=== PATIENT | female | born 1965 | race Caucasian/White ===

== ENCOUNTER 2020-08-02 08:27 | Outpatient (CLI) | payer OTHER | END 2020-08-02 08:28 | disposition home or self-care (01) | LOC: CSHWCC 08:27 | PROVIDERS: ATTEND Nurse Practitioner Family | DX: T81.89XD Other complications of procedures, not elsewhere classified, subsequent encounter (principal); T81.30XD Disruption of wound, unspecified, subsequent encounter; K45.1 Other specified abdominal hernia with gangrene; B18.2 Chronic viral hepatitis C; E11.8 Type 2 diabetes mellitus with unspecified complications; E66.3 Overweight; E78.2 Mixed hyperlipidemia; G47.33 Obstructive sleep apnea (adult) (pediatric); I10 Essential (primary) hypertension | CPT/HCPCS: 99203; G0463 ==

== ENCOUNTER 2020-08-08 09:04 | Outpatient (CLI) | payer OTHER | END 2020-08-08 09:05 | disposition home or self-care (01) | LOC: CSHWCC 09:04 | PROVIDERS: ATTEND Nurse Practitioner Family | DX: T81.89XD Other complications of procedures, not elsewhere classified, subsequent encounter (principal); T81.30XD Disruption of wound, unspecified, subsequent encounter; B18.2 Chronic viral hepatitis C; E11.8 Type 2 diabetes mellitus with unspecified complications; E66.3 Overweight; E78.2 Mixed hyperlipidemia; G47.33 Obstructive sleep apnea (adult) (pediatric); K45.1 Other specified abdominal hernia with gangrene; I10 Essential (primary) hypertension | CPT/HCPCS: 97605; 99213; G0463 ==

== ENCOUNTER 2020-08-10 09:13 | Outpatient (CLI) | payer OTHER | END 2020-08-10 09:14 | disposition home or self-care (01) | LOC: CSHWCC 09:13 | PROVIDERS: ATTEND Nurse Practitioner Family | DX: T81.89XD Other complications of procedures, not elsewhere classified, subsequent encounter (principal); B18.2 Chronic viral hepatitis C; E11.8 Type 2 diabetes mellitus with unspecified complications; E66.3 Overweight; E78.2 Mixed hyperlipidemia; G47.33 Obstructive sleep apnea (adult) (pediatric); K45.1 Other specified abdominal hernia with gangrene; T81.30XD Disruption of wound, unspecified, subsequent encounter | CPT/HCPCS: 97605; 99213; G0463 ==

== ENCOUNTER 2020-08-14 14:09 | Outpatient (CLI) | payer OTHER | END 2020-08-14 14:10 | disposition home or self-care (01) | LOC: CSHWCC 14:09 | PROVIDERS: ATTEND Nurse Practitioner Family | DX: T81.89XD Other complications of procedures, not elsewhere classified, subsequent encounter (principal); T81.30XD Disruption of wound, unspecified, subsequent encounter; E11.8 Type 2 diabetes mellitus with unspecified complications; E78.2 Mixed hyperlipidemia; K45.1 Other specified abdominal hernia with gangrene; B18.2 Chronic viral hepatitis C; G47.33 Obstructive sleep apnea (adult) (pediatric); I10 Essential (primary) hypertension; E66.3 Overweight | CPT/HCPCS: 97605; 99213; G0463 ==

== ENCOUNTER 2020-08-16 11:12 | Outpatient (CLI) | payer OTHER | END 2020-08-16 11:13 | disposition home or self-care (01) | LOC: CSHWCC 11:12 | PROVIDERS: ATTEND Nurse Practitioner Family | DX: T81.89XD Other complications of procedures, not elsewhere classified, subsequent encounter (principal); T81.30XD Disruption of wound, unspecified, subsequent encounter; B18.2 Chronic viral hepatitis C; E78.2 Mixed hyperlipidemia; G47.33 Obstructive sleep apnea (adult) (pediatric); K45.1 Other specified abdominal hernia with gangrene; E11.8 Type 2 diabetes mellitus with unspecified complications; E66.3 Overweight; I10 Essential (primary) hypertension | CPT/HCPCS: 97605 ==

== ENCOUNTER 2020-08-21 09:13 | Outpatient (CLI) | payer OTHER | END 2020-08-21 09:14 | disposition home or self-care (01) | LOC: CSHWCC 09:13 | PROVIDERS: ATTEND Nurse Practitioner Family | DX: T81.89XD Other complications of procedures, not elsewhere classified, subsequent encounter (principal); T81.30XD Disruption of wound, unspecified, subsequent encounter; B18.2 Chronic viral hepatitis C; E11.8 Type 2 diabetes mellitus with unspecified complications; E78.2 Mixed hyperlipidemia; G47.33 Obstructive sleep apnea (adult) (pediatric); K45.1 Other specified abdominal hernia with gangrene; I10 Essential (primary) hypertension; E66.3 Overweight | CPT/HCPCS: 99213; G0463 ==

== ENCOUNTER 2020-08-24 10:42 | Outpatient (CLI) | payer OTHER | END 2020-08-24 10:43 | disposition home or self-care (01) | LOC: CSHWCC 10:42 | PROVIDERS: ATTEND Nurse Practitioner Family | DX: T81.89XD Other complications of procedures, not elsewhere classified, subsequent encounter (principal); B18.2 Chronic viral hepatitis C; E11.8 Type 2 diabetes mellitus with unspecified complications; E66.3 Overweight; E78.2 Mixed hyperlipidemia; G47.33 Obstructive sleep apnea (adult) (pediatric); I10 Essential (primary) hypertension; K45.1 Other specified abdominal hernia with gangrene; T81.30XS Disruption of wound, unspecified, sequela | CPT/HCPCS: 10140; 87070; 87077; 87186; 87205; 97605; 99213; G0463 ==

== ENCOUNTER 2020-08-27 10:46 | Outpatient (CLI) | payer OTHER | END 2020-08-27 10:47 | disposition home or self-care (01) | LOC: CSHWCC 10:46 | PROVIDERS: ATTEND Nurse Practitioner Family | DX: T81.89XD Other complications of procedures, not elsewhere classified, subsequent encounter (principal); T81.30XS Disruption of wound, unspecified, sequela; B18.2 Chronic viral hepatitis C; E11.8 Type 2 diabetes mellitus with unspecified complications; E66.3 Overweight; E78.2 Mixed hyperlipidemia; G47.33 Obstructive sleep apnea (adult) (pediatric); I10 Essential (primary) hypertension; K45.1 Other specified abdominal hernia with gangrene | CPT/HCPCS: 97605; 99213; G0463 ==

== ENCOUNTER 2020-08-31 08:25 | Outpatient (CLI) | payer OTHER | END 2020-08-31 08:26 | disposition home or self-care (01) | LOC: CSHWCC 08:25 | PROVIDERS: ATTEND Nurse Practitioner Family | DX: T81.89XD Other complications of procedures, not elsewhere classified, subsequent encounter (principal); T81.30XD Disruption of wound, unspecified, subsequent encounter; K45.1 Other specified abdominal hernia with gangrene; B18.2 Chronic viral hepatitis C; E11.8 Type 2 diabetes mellitus with unspecified complications; E66.3 Overweight; E78.2 Mixed hyperlipidemia; G47.33 Obstructive sleep apnea (adult) (pediatric); I10 Essential (primary) hypertension | CPT/HCPCS: 97605; 99213; G0463 ==

== ENCOUNTER 2020-09-03 15:32 | Outpatient (CLI) | payer OTHER | END 2020-09-03 15:33 | disposition home or self-care (01) | LOC: CSHWCC 15:32 | PROVIDERS: ATTEND Nurse Practitioner Family | DX: T81.89XA Other complications of procedures, not elsewhere classified, initial encounter (principal); B18.2 Chronic viral hepatitis C; E11.8 Type 2 diabetes mellitus with unspecified complications; E66.3 Overweight; E78.2 Mixed hyperlipidemia; G47.33 Obstructive sleep apnea (adult) (pediatric); I10 Essential (primary) hypertension; K45.1 Other specified abdominal hernia with gangrene; T81.30XA Disruption of wound, unspecified, initial encounter | CPT/HCPCS: 97605 ==

== ENCOUNTER 2020-09-07 11:20 | Outpatient (CLI) | payer OTHER | END 2020-09-07 11:21 | disposition home or self-care (01) | LOC: CSHWCC 11:20 | PROVIDERS: ATTEND Nurse Practitioner Family | DX: T81.89XD Other complications of procedures, not elsewhere classified, subsequent encounter (principal); T81.30XD Disruption of wound, unspecified, subsequent encounter; E11.8 Type 2 diabetes mellitus with unspecified complications; B18.2 Chronic viral hepatitis C; E66.3 Overweight; G47.33 Obstructive sleep apnea (adult) (pediatric); I10 Essential (primary) hypertension; K45.1 Other specified abdominal hernia with gangrene; E78.2 Mixed hyperlipidemia ==

== ENCOUNTER 2020-09-10 11:05 | Outpatient (CLI) | payer OTHER | END 2020-09-10 11:06 | disposition home or self-care (01) | LOC: CSHWCC 11:05 | PROVIDERS: ATTEND Nurse Practitioner Family | DX: T81.89XD Other complications of procedures, not elsewhere classified, subsequent encounter (principal); T81.30XD Disruption of wound, unspecified, subsequent encounter; B18.2 Chronic viral hepatitis C; K45.1 Other specified abdominal hernia with gangrene; E11.8 Type 2 diabetes mellitus with unspecified complications; G47.33 Obstructive sleep apnea (adult) (pediatric); E78.2 Mixed hyperlipidemia; I10 Essential (primary) hypertension; E66.3 Overweight ==

== ENCOUNTER 2020-09-24 16:41 | Outpatient (CLI) | payer OTHER | END 2020-09-24 16:42 | disposition home or self-care (01) | LOC: CSHWCC 16:41 | PROVIDERS: ATTEND Nurse Practitioner Family | DX: T81.89XD Other complications of procedures, not elsewhere classified, subsequent encounter (principal); T81.30XD Disruption of wound, unspecified, subsequent encounter; B18.2 Chronic viral hepatitis C; E11.8 Type 2 diabetes mellitus with unspecified complications; E66.3 Overweight; E78.2 Mixed hyperlipidemia; G47.33 Obstructive sleep apnea (adult) (pediatric); K45.1 Other specified abdominal hernia with gangrene; I10 Essential (primary) hypertension | CPT/HCPCS: 99213; G0463 ==

== ENCOUNTER 2023-01-02 07:52 | Day surgery (SDC) | payer OTHER ==
[2022-12-31 15:31] VITALS: BMI 39.3
[2023-01-02] MEDS ORDERED: PROPOFOL 20 ML ONE (09:35)
[2023-01-02] MEDS ORDERED: Ketorolac Tromethamine 30 MG/ML VIAL ONE (09:35)
[2023-01-02] MEDS ORDERED: Ondansetron PF 4 MG/2 ML Vial ONE (09:35)
[2023-01-02] MEDS ORDERED: Dexamethasone 4 mg/ml Vial ONE (09:35)
[2023-01-02] MEDS ORDERED: Lidocaine 1% PF 5 ML VIAL ONE (09:35)
[2023-01-02] MEDS ORDERED: fentaNYL 50 mcg/mL 1 mL Vial ONE ×2 (09:35→09:36)
[2023-01-02] MEDS ORDERED: Promethazine HCl 25 MG/ML VIAL ONE (09:38)
[2023-01-02] MEDS ORDERED: CEFAZOLIN 2 GM VIAL ONE (09:43)
[2023-01-02] MEDS ORDERED: ePHEDrine Sulfate 50 MG/10 ML VIAL ONE (10:08)
[2023-01-02] MEDS ORDERED: Bupivacaine PF 0.5% 30 ML VIAL ONE (10:10)
[2023-01-02] MEDS ORDERED: PHENYLEPHRINE-NS 100 MCG/ML 10 ML SYRINGE ONE (10:16)
== END 2023-01-02 12:05 | disposition home or self-care (01) ==
LOC: CSHSDC 07:52
PROVIDERS: ATTEND Podiatrist Foot & Ankle Surgery
PROC: 0SGQ07Z Fusion of Left Toe Phalangeal Joint with Autologous Tissue Substitute, Open Approach (ICD-10-PCS; principal; 2023-01-02)
DX: M20.42 Other hammer toe(s) (acquired), left foot (principal); K57.30 Diverticulosis of large intestine without perforation or abscess without bleeding; E78.00 Pure hypercholesterolemia, unspecified; E11.65 Type 2 diabetes mellitus with hyperglycemia; E66.9 Obesity, unspecified; Z68.39 Body mass index [BMI] 39.0-39.9, adult; Z91.09 Other allergy status, other than to drugs and biological substances; Z71.6 Tobacco abuse counseling; Z98.890 Other specified postprocedural states; Z79.899 Other long term (current) drug therapy; Z88.5 Allergy status to narcotic agent; Z91.041 Radiographic dye allergy status
CPT/HCPCS: C1713; J1100; J1885; J2405; J2550; J2704; J3010; S0020